=== PATIENT | female | born 1975 | race Caucasian/White ===

== ENCOUNTER 2023-10-18 23:28 | Emergency (ER) | payer BC ==
[~2023-10-18] VITALS: Ht 157.5 cm; Wt 63.5 kg
[2023-10-18 23:34] VITALS: BP_SYST 163; PULSE 58; RESP 17; TEMP 98; O2SAT 98
[2023-10-19] MEDS ORDERED: LISINOPRIL 10 MG TABLET (PRINIVIL) PO ONE
[2023-10-19] MEDS ORDERED: LISINOPRIL 10 MG TABLET (PRINIVIL) ONE ×2 (00:09→00:11)
[2023-10-19 01:45] LABS: BASOPHILS # (AUTO) 0.1 K/uL (0.0-0.2); BASOPHILS % (AUTO) 1.6 % (0.0-2.0); EOSINOPHILS # (AUTO) 0.2 K/uL (0.0-0.4); EOSINOPHILS % (AUTO) 3.6 % (0.0-4.0); HEMATOCRIT 38.6 % (36-48); HEMOGLOBIN 13.2 g/dL (12.0-16.0); LYMPHOCYTES # (AUTO) 2.2 K/uL (1.0-5.5); LYMPHOCYTES % (AUTO) 32.9 % (20.5-51.5); MEAN CORPUSCULAR HEMOGLOBIN 31 pg (27-31); MEAN CORPUSCULAR HGB CONC 34 % (32-36); MEAN CORPUSCULAR VOLUME 91 fL (79.0-98.0); MONOCYTES # (AUTO) 0.7 K/uL (0.0-1.0); MONOCYTES % (AUTO) 10.9 % (1.7-9.3); NEUTROPHILS # (AUTO) 3.4 K/uL (1.8-7.7); PLATELET COUNT (AUTO) 278 K/uL (130-430); RED BLOOD CELL COUNT(AUTO) 4.23 MIL/uL (4.2-6.2); RED CELL DISTRIBUTION WIDTH 13.3 % (9.0-15.0); WHITE BLOOD COUNT (AUTO) 6.7 K/uL (4.8-10.8)
[2023-10-19 01:54] LABS: ANION GAP 8 (5-15); CARBON DIOXIDE 28 mmol/L (23-29); CHLORIDE 104 mmol/L (98-107); CREATININE 1.23 mg/dL (0.55-1.30); GFR AFRICAN AMERICAN 61 mL/min (>90); GLUCOSE 95 mg/dL (74-106); POTASSIUM 4.2 mmol/L (3.5-5.1); SODIUM SERUM 140 mmol/L (136-145); UREA NITROGEN, BLOOD 20 mg/dL (8-21)
[2023-10-19 01:57] LABS: GFR NON AFRICAN-AMERICAN 50 mL/min (>90)
[2023-10-19] MEDS ORDERED: LISI20TA30 PO (02:10)
[2023-10-19 02:23] VITALS: BP_SYST 156; PULSE 58; RESP 14; TEMP 97.5; O2SAT 98
== END 2023-10-19 02:23 | disposition home or self-care (01) ==
LOC: SED 23:28
DX: R68.84 Jaw pain (principal); I12.9 Hypertensive chronic kidney disease with stage 1 through stage 4 chronic kidney disease, or unspecified chronic kidney disease; N18.9 Chronic kidney disease, unspecified; Z79.899 Other long term (current) drug therapy
CPT/HCPCS: 36415; 80048; 84484; 85025; 93005; 99284